=== PATIENT | male | born 1980 ===

== ENCOUNTER 2022-02-18 09:09 | Outpatient (REF) | payer OTHER, SELFPAY ==
[2022-02-18 09:43] LABS: MANUAL DIFF FLAG NO
[2022-02-18 11:27] LABS: Basophils Percent Auto 0.6 % (0-2); Eosinophils Absolute Auto 0.1 X10*3/uL (0.0-0.4); Eosinophils Percent Auto 1.2 % (0-4); Hematocrit 39.5 % (42.0-52.0); Hemoglobin 13.1 g/dl (14.0-18.0); Imm Gran Abs Auto 0.02 X10*3/uL (0.00-0.03); Imm Gran Pct Auto 0.3 % (0.0-0.4); Lymphocytes Absolute Auto 2.1 X10*3/uL (1.2-4.9); Lymphocytes Percent Auto 30.9 % (20-40); Mean Corpuscular HGB Conc 33.2 g/dl (31.0-36.0); Mean Corpuscular Hemoglobin 28.4 pg (27.0-33.0); Mean Corpuscular Volume 85.7 fL (80.0-98.0); Mean Platelet Volume 11.3 fL (9.4-12.4); Monocytes Absolute Auto 0.4 X10*3/uL (0.1-1.2); Monocytes Percent Auto 6.2 % (2-11); Neutrophils Absolute Auto 4.1 x10*3/uL (2.0-8.3); Neutrophils Percent Auto 60.8 % (45-73); Platelet Count 192 X10*3/uL (160-400); Red Blood Count 4.61 X10*6/uL (4.60-5.80); White Blood Count 6.7 X10*3/uL (4.8-10.8)
[2022-02-18 12:46] LABS: Alanine Aminotransferase 12 U/L (0-40); Albumin Level 4.4 g/dL (3.5-5.0); Alkaline Phosphatase 54 U/L (39-117); Anion Gap 13 (12-20); Aspartate Amino Transferase 22 U/L (5-37); Bilirubin Total 0.6 mg/dL (0.0-1.0); Blood Urea Nitrogen 11 mg/dL (9-16); Calcium 9.6 mg/dL (8.4-10.2); Carbon Dioxide 26 mmol/L (22-29); Chloride 106 mmol/L (96-108); Cholesterol 187 mg/dL; Estimated Glomerular Filt Rate > 60; Glucose Fasting 85 mg/dL (60-99); HDL Cholesterol 60 mg/dL; LDL Cholesterol Calculated 119 mg/dl; Potassium 5.2 mmol/L (3.3-5.1); Sodium 140 mmol/L (135-145); Total Protein 6.8 g/dL (6.5-8.0); Triglycerides 44 mg/dL
== END 2022-02-18 09:10 | disposition home or self-care (01) ==
LOC: HO.LAB 09:09
PROVIDERS: PCP Internal Medicine; Visit Provider Internal Medicine
DX: Z13.0 Encounter for screening for diseases of the blood and blood-forming organs and certain disorders involving the immune mechanism (principal); I10 Essential (primary) hypertension; E78.5 Hyperlipidemia, unspecified
CPT/HCPCS: 36415; 80053; 80061; 85025

== ENCOUNTER 2022-08-11 09:54 | Outpatient (REF) | payer OTHER, SELFPAY ==
--- NOTE | ~2022-08-11 | XR_ITS ---
EXAMINATION: XR HIP, LEFT CLINICAL INFORMATION: Pain. COMPARISON: No similar priors. TECHNIQUE: Two views of the left hip. FINDINGS: No acute fractures or subluxation. No significant degenerative changes. No abnormal soft tissue calcifications. No unexpected radiopaque foreign bodies. XR/XR hip LT min 2V IMPRESSION: No acute radiographic abnormalities to explain patient's symptoms.
--- NOTE | ~2022-08-11 | XR_ITS ---
EXAMINATION: XR KNEE, LEFT CLINICAL INFORMATION: Pain. COMPARISON: None available. TECHNIQUE: Two views of the left knee. FINDINGS: No acute fractures or subluxation. No significant degenerative changes. No erosions or chondrocalcinosis. No joint effusion. XR/XR knee LT 2V IMPRESSION: Normal radiographic appearance of the left knee.
== END 2022-08-11 09:55 | disposition home or self-care (01) ==
LOC: HO.XRAY 09:54
PROVIDERS: PCP Internal Medicine; Visit Provider Internal Medicine
DX: M25.562 Pain in left knee (principal); M25.552 Pain in left hip
CPT/HCPCS: 73502; 73560

== ENCOUNTER 2023-10-29 11:05 | Outpatient (AMB) | payer OTHER, SELFPAY ==
[2023-10-29 11:12] VITALS: BP 110/70; PULSE 57; O2SAT 98; BMI 25.0
--- NOTE | 2023-10-29 11:12 | MHC.PC.OV ---
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: Not Required per policy Accompanied by: Self / Same As Patient Allergies No Known Allergies Allergy (Verified 10/29/23 11:13) Tobacco use date assessed: 10/29/23 Dental Screening Dental Screen Date: 10/29/23 Did you have a dental visit in the last 12 months?: Yes Did you have a dental problem in the last 6 months where you did not have access to dental care?: No Was dental information given to patient?: Patient has dentist HPI chest pain HPI Details sharp palpitations and chest pain intermittently chronic but worse recently [facility] Surgical History No pertinent past surgical history Family History Father Heart problem Mother Asthma Arthritis Social History (Updated 10/24/21 @ 13:48 by Ritesh Hair [facility]) Housing: House (town house) Alcohol intake: never Patient Tobacco Use Status: Current everyday Tobacco user Tobacco use type: Cigarette Cigarettes Per Day: 5 e-Cigarette/Vaping Use: Former Use Second Hand Smoke Exposure: Yes service: No Current occupational status: employed 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 1. Little interest or pleasure in doing things: not at all 2. Feeling down, depressed, or hopeless: not at all 3. Trouble falling or staying asleep, or sleeping too much: not at all 4. Feeling tired or having little energy: not at all 5. Poor appetite or overeating: not at all 6. Feeling bad about yourself - or that you are a failure or have let yourself or your family down: not at all 7. Trouble concentrating on things, such as reading the newspaper or watching television: not at all 8. Moving or speaking so slowly that other people could have noticed. Or the opposite - being so fidgety or restless that you have been moving around a lot more than usual: not at all 9. Thoughts that you would be better off or of hurting yourself in some way: not at all Total score: 0 Depression Screening Interpretation: Negative Depression Screening Done: Yes 76904 - PHQ-9 Billing: Yes Source: Developed by Drs. Trell Hua, Chel Delgado, Nabeel Song and colleagues, with an educational nic from [employer]. Thrive Questionnaire Date Thrive assessed: 10/29/23 I am a: Patient What is your living situation today?: I have a steady place to live Within the past 12 months, did the food you bought not last and you didn't have the money to get more?: Never true Within the past 12 months, did you worry whether your food would run out before you got money to buy more?: Never true Do you have trouble paying for medicines?: No Do you have trouble getting transportation to medical appointments?: No Do you have trouble paying your heating and electricity bill?: No Do you have trouble taking care of your child, family member or friend?: No Do you have trouble with day-to-day activities such as bathing, preparing meals, shopping, managing finances, etc.?: No Are you currently unemployed and looking for a job?: No Are you interested in more education?: No Please select the resources that you would like help with: None THRIVE Score: 0 AUDIT C Alcohol Use Questionnaire (AUDIT-C) 1. How often do you have a drink containing alcohol?: Never 2. How many drinks containing alcohol do you have on a typical day when you are drinking?: 1 or 2 Total Score: 0 Score Reviewed/Action Taken: Yes MONI-7 AMB Questionnaire MONI-7 Date MONI - 7 assessed: 10/29/23 Feeling nervous, anxious, or on edge: 0 = Not at all Not being able to stop or control worryin = Not at all Worrying too much about different things: 0 = Not at all Trouble relaxin = Not at all Being so restless that it is hard to sit still: 0 = Not at all Becoming easily annoyed or irritable: 0 = Not at all Feeling afraid as if something awful might happen: 0 = Not at all Total MONI-7 score (0-4 normal; 5-9 mild; 10-14 moderate; 15-21 severe): 0 Source: Developed by Drs. Trell Hua, Chel Delgado, Nabeel Song and colleagues, with an educational nic from [employer]. Review of Systems Const Denies chills, Denies headache(s) and Denies weight loss ENT Denies headache(s) Card Reports chest pain, Denies syncope and Denies dyspnea Resp Denies chest congestion, Denies cough and Denies dyspnea GI Denies abdominal pain, Denies change in stool character, Denies nausea and Denies vomiting Musc Denies deformity and Denies joint swelling Neuro Denies syncope and Denies headache(s) Physical exam (Primary Care) Vital Signs: Last Vital Signs Pulse 57 10/29/23 11:12 BP 110/70 10/29/23 11:12 Pulse Ox 98 10/29/23 11:12 Oxygen Delivery Method Room Air 10/29/23 11:12 BMI result Body Mass Index 25.0 Tobacco/Smoking Status: Tobacco use Status Tobacco use date assessed 10/29/23 10/29/23 11:14 Patient Tobacco Use Status Current everyday Tobacco 10/29/23 11:14 Tobacco use type Cigarette 10/29/23 11:14 e-Cigarette/Vaping Use Former Use 10/29/23 11:14 PHQ-9: PHQ-9 Score PHQ-9: Total score 0 10/29/23 11:14 Depression Screening Interpretation: Negative Thrive Assessment: Date of Thrive Assessment Date Thrive assessed 10/29/23 10/29/23 11:14 Const General: cooperative, comfortable, no acute distress and alert Neck Neck: Yes no lymphadenopathy Thyroid: Thyroid normal Resp Effort & Inspection: normal respiratory effort Auscultation: clear to auscultation bilaterally Percussion: percussion normal Cardio Jugular venous distension: no JVD Palpation: normal PMI Rate: regular rate Rhythm: regular rhythm Heart sounds: S1 normal heart sound present and S2 normal heart sound present GI Inspection: Yes normal to inspection Palpation (GI): No hepatosplenomegaly present Skin General skin exam: no rashes or lesions noted Extrem General: Yes no clubbing, cyanosis or edema Assessment and Plan Assessment & Plan (1) Chest pain: Code(s): R07.9 - Chest pain, unspecified Plan: labs ad xr Orders: Orders Thyroid Stimulating Hormone Today Z13.29 - Encounter for screening for other suspected endocrine disorder ECG 12 lead EKG Today R07.9 - Chest pain, unspecified Comprehensive [place]. Panel Fast Today Z13.9 - Encounter for screening, unspecified Complete Blood Count Auto Diff Today Z13.0 - Encounter for screening for diseases of the blood and blood-forming organs and certain disorders involving the immune mechanism Lipid Panel Today Z13.220 - Encounter for screening for lipoid disorders Coding Level of Care Code Est Pt Level 3 (22943) Diagnoses Chest pain R07.9
== END 2023-10-29 12:40 | disposition home or self-care (01) ==
PROVIDERS: PCP Internal Medicine; Visit Provider Internal Medicine
DX: R07.9 Chest pain, unspecified (principal)
CPT/HCPCS: 99213

== ENCOUNTER 2024-05-20 13:33 | Outpatient (AMB) | payer OTHER, SELFPAY ==
[2024-05-20 13:58] VITALS: BP 110/66; PULSE 66; TEMP 36.2; O2SAT 97; BMI 24.1
--- NOTE | 2024-05-20 13:58 | A.OFFPC_ITS ---
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 Accompanied by: Self / Same As Patient Allergies No Known Allergies Allergy (Verified 05/20/24 14:31) Medication List - Last Reconciled 05/20/24 by SOUMYA Blood buprenorphine-naloxone 4-1 mg (Suboxone) 1 film sublingual DAILY Tobacco use date assessed: 05/20/24 Dental Screening Dental Screen Date: 05/20/24 Did you have a dental visit in the last 12 months?: No Did you have a dental problem in the last 6 months where you did not have access to dental care?: No Was dental information given to patient?: Patient has dentist HPI PHYSICAL HPI Details Dentist: reports needing a dentist eye: up to date Eye: Snellen: Right: Left: Corrected vision: glasses STI screening: Na Colonoscopy: due-we will order PHQ-9: Flu:decline COVID:decline Tdap:don't remember Diet: regular Exercise: exercises at home doing push up The patient is presenting for an annual physical The patient of Dr. Cabral and was last seen on 10/29/2023 Significant past medical history for substance abuse, constipation, and rectal bleeding Patient reports that he has a lot of concerns today Discussed with patient that I will start the process on all his concerns but might not be able to rectify them on this visit Right knee: Reports that this has been going on for years he feels like his right knee has given out He denies pain, denies swelling, this nice discoloration, denies injuries Reports that it feels weaker at times and feels like it is given out will order a right knee x-ray to further evaluate lower back pain: Reports this has been going on for years as well He feels like a sharp pain or feel like I am being pinched in the back region Reports occasional tingling in his right calf Denies being seen by PT-but not sure if his workup was would allow We will order lumbar x-ray to further evaluate Abdominal pain: RUQ pain, + travis sign during assessment abdominal ultrasound ordered -the patient denied abdominal pain prior to assessment Amnesia: Reports episodes of amnesia that has been going on for 2-3 years Reports a sometime he forgets what he did few hours prior Denies other neurological s/sx -we will refer to neurology for workup *RUQ-+travis signs. 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 1. Little interest or pleasure in doing things: not at all 2. Feeling down, depressed, or hopeless: not at all 3. Trouble falling or staying asleep, or sleeping too much: not at all 4. Feeling tired or having little energy: not at all 5. Poor appetite or overeating: not at all 6. Feeling bad about yourself - or that you are a failure or have let yourself or your family down: not at all 7. Trouble concentrating on things, such as reading the newspaper or watching television: not at all 8. Moving or speaking so slowly that other people could have noticed. Or the opposite - being so fidgety or restless that you have been moving around a lot more than usual: not at all 9. Thoughts that you would be better off or of hurting yourself in some way: not at all Total score: 0 Depression Screening Interpretation: Negative Depression Screening Done: Yes 92840 - PHQ-9 Billing: Yes Source: Developed by Drs. Trell Hua, Chel Delgado, Nabeel Song and colleagues, with an educational nic from [employer]. Thrive Questionnaire Date Thrive assessed: 05/20/24 I am a: Parent/Caregiver What is your living situation today?: I have a place to live, but I am worried about losing it in the future Within the past 12 months, did the food you bought not last and you didn't have the money to get more?: Sometimes True Within the past 12 months, did you worry whether your food would run out before you got money to buy more?: Sometimes True Do you have trouble paying for medicines?: I choose not to answer this question Do you have trouble getting transportation to medical appointments?: No Do you have trouble paying your heating and electricity bill?: I choose not to answer this question Do you have trouble taking care of your child, family member or friend?: No Do you have trouble with day-to-day activities such as bathing, preparing meals, shopping, managing finances, etc.?: No Are you currently unemployed and looking for a job?: No Are you interested in more education?: No Please select the resources that you would like help with: Housing/Usp, Food, Utilities and Childcare Currently or been in a relationship where the following occur: I choose not to answer THRIVE Score: 3 AUDIT C Alcohol Use Questionnaire (AUDIT-C) 1. How often do you have a drink containing alcohol?: 2-4 times a month 2. How many drinks containing alcohol do you have on a typical day when you are drinking?: 1 or 2 3. How often do you have six or more drinks on one occasion?: Never Total Score: 2 Score Reviewed/Action Taken: Yes MONI-7 AMB Questionnaire MONI-7 Date MONI - 7 assessed: 05/20/24 Feeling nervous, anxious, or on edge: 0 = Not at all Not being able to stop or control worryin = Several days Worrying too much about different things: 1 = Several days Trouble relaxin = Several days Being so restless that it is hard to sit still: 1 = Several days Becoming easily annoyed or irritable: 1 = Several days Feeling afraid as if something awful might happen: 1 = Several days Total MONI-7 score (0-4 normal; 5-9 mild; 10-14 moderate; 15-21 severe): 6 Source: Developed by Drs. Trell Hua, Chel Delgado, Nabeel Song and colleagues, with an educational nic from [employer]. MONI-7 Assessment Billing MONI-7 Assessment Tool: MONI-7 Assessment 26181 Review of Systems Const Details: Denies chills, Denies fatigue, Denies fever(s), Denies headache(s) and Denies weakness HEENT Denies change in vision, Denies dizziness, Denies headache(s), Denies hearing loss, Denies nasal congestion, Denies sinus pain, Denies sinus pressure and Denies sore throat Card Denies chest pain, Denies lightheadedness, Denies dyspnea and reports hx of palpitations Resp Denies cough, Denies dyspnea and Denies wheezing GI Denies abdominal pain, Denies melena, Denies hematochezia, Denies change in bowel habits, Denies dyspepsia and Denies nausea Denies hematuria and Denies dysuria Musc other: reports lower back pain and right knee pain Denies abnormal gait, Denies myalgias, Denies arthralgias, Denies numbness and Denies tingling Skin/Breast Denies rash, Denies unusual bruising and Denies wounds Neuro Denies abnormal gait, Denies dizziness, Denies headache(s), Denies memory loss, Denies numbness, Denies Sensory deficit (Neuro), Denies tingling and Denies weakness Psych reports hx of anxiety and depression and Denies memory loss Endo Denies cold intolerance, Denies fatigue, Denies heat intolerance, Denies polydipsia and Denies polyuria Lei/Lymph Denies easy bleeding and Denies easy bruising Aller/Immun Denies wheezing Physical exam (Primary Care) Vital Signs: Last Vital Signs Temp 97.1 F 05/20/24 13:58 Pulse 66 05/20/24 13:58 BP 110/66 05/20/24 13:58 Pulse Ox 97 05/20/24 13:58 Oxygen Delivery Method Room Air 05/20/24 13:58 BMI result Body Mass Index 24.1 Tobacco/Smoking Status: Tobacco use Status Tobacco use date assessed 05/20/24 05/20/24 14:07 Patient Tobacco Use Status Former Tobacco user 05/20/24 14:35 Tobacco use type Cigarette 05/20/24 14:07 e-Cigarette/Vaping Use Former Use 05/20/24 14:07 PHQ-9: PHQ-9 Score PHQ-9: Total score 0 05/21/24 15:02 Depression Screening Interpretation: Negative Thrive Assessment: Date of Thrive Assessment Date Thrive assessed 05/20/24 05/20/24 14:07 Currently or been in a relationship where the following occur: I choose not to answer Const Other: General: no acute distress, well developed, alert and awake Nutritional Appearance: well nourished Orientation/consciousness: patient oriented x3 HENMT Head: Yes normocephalic and Yes atraumatic Ears: hearing grossly normal bilaterally and TM's normal bilaterally General nose exam: Normal external nose present and Normal nares present Mouth: Normal oral and palatal mucosa present and moist mucous membranes Teeth and gingiva: dentition normal Throat: Yes oropharynx normal Eyes Pupils: Equal, round and reactive pupils present and Pupil accommodation reflex normal EOM: EOMs intact bilaterally Neck Neck: Yes normal visual inspection, Yes no lymphadenopathy and Yes trachea midline Thyroid: Thyroid normal Carotids: no bruits Lymphatic: no lymphadenopathy noted Chest Chest palpation & inspection: normal inspection of the chest Resp Effort & Inspection: normal respiratory effort Auscultation: clear to auscultation bilaterally Cardio Rate: regular rate Rhythm: regular rhythm Heart sounds: S1 normal heart sound present, S2 normal heart sound present, no gallops, no murmurs and no rubs Bruits: no abdominal aortic bruits and no carotid bruits GI Palpation (GI): No Abdominal aortic bruit present, abdomen flat and soft to palpation, No Rebound tenderness present other: +travis's test Auscultation: normal bowel sounds General: Yes no CVA tenderness Back/Spine/Pelvis Back: no CVA tenderness Cervical Spine: cervical ROM normal and No Cervical spine tenderness Thoracic/Lumbar Spine: thoraco-lumbar ROM normal, No pain with thoraco-lumbar ROM, No thoracic spinal tenderness and +lower lumbar spinal tenderness Skin General: warm and dry. Normal skin color. Normal skin turgor Lesions: no lesions Rashes: no rashes Trauma: no lacerations or abrasions Wounds: no wounds Nails: normal Neuro General: patient oriented x3, gait normal and CN's II-XI intact bilaterally Cranial nerves: Yes Equal, round and reactive pupils present Cognition (Neuro): normal cognition Gait exam (Neuro): Normal gait present Motor exam (neuro): 5/5 motor strength present throughout Sensory Exam: No Sensory deficit (Neuro) Deep tendon reflexes (DTR's): Right patellar reflex intensity grade: 2+ and Left patellar reflex intensity grade: 2+ Extrem General: Yes normal to inspection, No edema and No calf tenderness Psych Appearance: grossly normal Affect: normal affect Attitude: cooperative Thought process: Normal thought process present Coding Level of Care Code Est Pt Prev Care 40-64y(58217) Diagnoses Annual physical exam Z00.00 Right upper quadrant abdominal pain R10.11 Abdominal location: right upper quadrant Rectal bleeding K62.5 Midline low back pain with right-sided sciatica, unspecified chronicity M54.41 Back pain laterality: midline Chronicity: unspecified Sciatica laterality: sciatica of right side Sciatica presence: with sciatica Right knee gives way M25.361 Substance abuse in remission F19.11 Screening for colorectal cancer Z12.11; Z12.12 Additional Codes MONI-7 Assessment Billing - MONI-7 Assessment Tool: MONI-7 Assessment 07205 ([id number]) PHQ-9 - 58919 - PHQ-9 Billing: Yes ([id number]) Time Spent (min) 42 Assessment & Plan Assessment & Plan (1) Annual physical exam: Code(s): Z00.00 - Encounter for general adult medical examination without abnormal findings Category: Medical Plan: The patient is update on his eye exam, he needs to see the dentist-he will make an appt declines covid and flu vaccine. He due for colorectal screening a GI referral was placed Labs ordered and the patient was encouraged to get them done noel (2) Abdominal pain: Code(s): R10.9 - Unspecified abdominal pain Category: Medical Qualifiers: Abdominal location: right upper quadrant Qualified Code(s): R10.11 - Right upper quadrant pain Plan: +travis test during exam abdominal US ordered (3) Rectal bleeding: Comment: 40 min reviewing chart evaluating patient and documenting Code(s): K62.5 - Hemorrhage of anus and rectum Category: Medical Plan: The patient has a hx of hemrrhoids, reports that this has been stable (4) Lower back pain: Code(s): M54.50 - Low back pain, unspecified Category: Medical Qualifiers: Back pain laterality: midline Chronicity: unspecified Sciatica laterality: sciatica of right side Sciatica presence: with sciatica Qualified Code(s): M54.41 - Lumbago with sciatica, right side Plan: reports chronic lower back pain that goes down into right calf region sometimes XR of the lumbar spine ordered (5) Right knee gives way: Code(s): M25.361 - Other instability, right knee Category: Medical Plan: right knee xray ordered Will hold on PT for now, the patient not sure he could commit with his work schedule (6) Substance abuse in remission: Code(s): F19.11 - Other psychoactive substance abuse, in remission Category: Medical Plan: reports that this has been stable since he became a dad, he changed his life around He is currently on Suboxone 4-1 mg 1 film QD (7) Screening for colorectal cancer: Code(s): Z12.11 - Encounter for screening for malignant neoplasm of colon; Z12.12 - Encounter for screening for malignant neoplasm of rectum Category: Medical Plan: The patient is due for colorectal screening-GI refferal placed. Plan The patient to f/u in 2 weeks to review his labs and continue addressing other concerns he had Orders: Orders Comprehensive [place]. Panel Fast 05/20/24 F19.11 - Other psychoactive substance abuse, in remission, K62.5 - Hemorrhage of anus and rectum, Z00.00 - Encounter for general adult medical examination without abnormal findings UA CC w/rflx Micro + Cult 05/20/24 F19.11 - Other psychoactive substance abuse, in remission, K62.5 - Hemorrhage of anus and rectum, Z00.00 - Encounter for general adult medical examination without abnormal findings Lipid Panel 05/20/24 F19.11 - Other psychoactive substance abuse, in remission, K62.5 - Hemorrhage of anus and rectum, Z00.00 - Encounter for general adult medical examination without abnormal findings US abdomen complete 05/20/24 R10.9 - Unspecified abdominal pain XR lumbar spine 2-3V 05/20/24 M54.50 - Low back pain, unspecified XR knee RT 3V 05/20/24 M25.561 - Pain in right knee Complete Blood Count Auto Diff 05/20/24 F19.11 - Other psychoactive substance abuse, in remission, K62.5 - Hemorrhage of anus and rectum, Z00.00 - Encounter for general adult medical examination without abnormal findings TSH reflex Free T4 05/20/24 F19.11 - Other psychoactive substance abuse, in remission, K62.5 - Hemorrhage of anus and rectum, Z00.00 - Encounter for general adult medical examination without abnormal findings Vitamin D 25-OH Total 05/20/24 F19.11 - Other psychoactive substance abuse, in remission, K62.5 - Hemorrhage of anus and rectum, Z00.00 - Encounter for general adult medical examination without abnormal findings Glucose Fasting 05/20/24 F19.11 - Other psychoactive substance abuse, in remission, K62.5 - Hemorrhage of anus and rectum, Z00.00 - Encounter for general adult medical examination without abnormal findings PSA,Total (Free>4and<10) 05/20/24 F19.11 - Other psychoactive substance abuse, in remission, K62.5 - Hemorrhage of anus and rectum, Z00.00 - Encounter for general adult medical examination without abnormal findings Referrals Gastroenterology Referral Z12.11 - Encounter for screening for malignant neoplasm of colon, Z12.12 - Encounter for screening for malignant neoplasm of rectum
== END 2024-05-20 14:44 | disposition home or self-care (01) ==
DX: Z00.00 Encounter for general adult medical examination without abnormal findings (principal); R10.11 Right upper quadrant pain; K62.5 Hemorrhage of anus and rectum; M54.41 Lumbago with sciatica, right side; M25.361 Other instability, right knee; F19.11 Other psychoactive substance abuse, in remission; Z12.11 Encounter for screening for malignant neoplasm of colon; Z12.12 Encounter for screening for malignant neoplasm of rectum

== ENCOUNTER → 2024-05-20 13:33 | Outpatient (BNVA) | payer OTHER, SELFPAY | DX: Z00.00 Encounter for general adult medical examination without abnormal findings (principal); R10.11 Right upper quadrant pain; K62.5 Hemorrhage of anus and rectum; M54.41 Lumbago with sciatica, right side; M25.361 Other instability, right knee; F19.11 Other psychoactive substance abuse, in remission | CPT/HCPCS: 96127; 99396 ==

== ENCOUNTER 2024-05-24 09:32 | Outpatient (REF) | payer OTHER, SELFPAY ==
[2024-05-24 09:44] LABS: MANUAL DIFF FLAG NO
[2024-05-24 10:09] LABS: Basophils Percent Auto 0.6 % (0-2); Eosinophils Percent Auto 0.8 % (0-4); Hematocrit 40.5 % (42.0-52.0); Hemoglobin 13.7 g/dl (14.0-18.0); Imm Gran Abs Auto 0.01 X10*3/uL (0.00-0.03); Imm Gran Pct Auto 0.2 % (0.0-0.4); Lymphocytes Absolute Auto 1.7 X10*3/uL (1.2-4.9); Lymphocytes Percent Auto 32.8 % (20-40); Mean Corpuscular HGB Conc 33.8 g/dl (31.0-36.0); Mean Corpuscular Hemoglobin 29.1 pg (27.0-33.0); Mean Platelet Volume 10.1 fL (9.4-12.4); Monocytes Absolute Auto 0.5 X10*3/uL (0.1-1.2); Monocytes Percent Auto 10.4 % (2-11); Neutrophils Absolute Auto 2.9 x10*3/uL (2.0-8.3); Neutrophils Percent Auto 55.2 % (45-73); Platelet Count 208 X10*3/uL (160-400); Red Blood Count 4.71 X10*6/uL (4.60-5.80); Red Cell Distribution Width 13.9 % (11.0-16.0); White Blood Count 5.2 X10*3/uL (4.8-10.8)
[2024-05-24 10:52] LABS: Appearance Urine Clear; Color Urine Yellow; Glucose Urine UA Negative (Negative); Leukocyte Esterase Urine Negative (Negative); Nitrite Urine Negative (Negative); Urine Blood Negative (Negative); Urine Ketones Negative (Negative); Urine Protein Negative (Neg-Trace)
[2024-05-24 11:59] LABS: Alanine Aminotransferase 31 U/L (0-40); Albumin Level 4.4 g/dL (3.5-5.0); Alkaline Phosphatase 56 U/L (39-117); Anion Gap 9 (12-20); Aspartate Amino Transferase 34 U/L (5-37); Bilirubin Total 0.5 mg/dL (0.0-1.0); Blood Urea Nitrogen 12 mg/dL (9-16); Calcium 9.4 mg/dL (8.4-10.2); Carbon Dioxide 29 mmol/L (22-29); Chloride 107 mmol/L (96-108); Cholesterol 184 mg/dL (<200); Estimated Glomerular Filt Rate > 60; Glucose Fasting 84 mg/dL (60-99); HDL Cholesterol 57 mg/dL (>40); LDL Cholesterol Calculated 116 mg/dL (<100); Potassium 4.5 mmol/L (3.3-5.1); Sodium 140 mmol/L (135-145); Total Protein 7.3 g/dL (6.5-8.0); Triglycerides 58 mg/dL (<150)
[2024-05-24 12:08] LABS: TSH reflex Free T4 0.58 uIU/mL (0.32-4.0); Vitamin D 25-OH Total 42.2 ng/mL (>30)
[2024-05-24 12:09] LABS: PSA,Total (Free>4and<10) 0.26 ng/mL (0.00-4.00)
== END 2024-05-24 09:33 | disposition home or self-care (01) ==
LOC: HO.LAB 09:32
DX: Z00.00 Encounter for general adult medical examination without abnormal findings (principal); F19.11 Other psychoactive substance abuse, in remission; K62.5 Hemorrhage of anus and rectum
CPT/HCPCS: 36415; 80053; 80061; 81003; 82306; 84153; 84443; 85025

== ENCOUNTER 2024-06-03 13:49 | Outpatient (AMB) | payer OTHER, SELFPAY ==
[2024-06-03 14:05] VITALS: BP 116/68; PULSE 82; O2SAT 96; BMI 23.6
--- NOTE | 2024-06-03 14:05 | MHC.PC.OV ---
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 Accompanied by: Self / Same As Patient Allergies No Known Allergies Allergy (Verified 06/04/24 20:54) Medication List - Last Reconciled 06/04/24 by SOUMYA Blood buprenorphine-naloxone 4-1 mg (Suboxone) 1 film sublingual DAILY docusate sodium (Colace) 100 mg PO BID Tobacco use date assessed: 06/03/24 Dental Screening Dental Screen Date: 06/03/24 Did you have a dental visit in the last 12 months?: No Did you have a dental problem in the last 6 months where you did not have access to dental care?: No Was dental information given to patient?: No HPI lab review/lower back/abdominal pain HPI Details The patient is 44-year-old male with significant past medical history of substance abuse in remission, rectal bleeding, in constipation The patient is presenting for follow up appointment for abdominal pain and lab review On the patient previous visit an abdominal ultrasound was ordered due to right upper quadrant pain Patient reports that he received the call about scheduling the ultrasound but he has to figure out some things at work first He can not just take time off when he wants to and he has to make sure he has the PTO hours to cover it first In addition he has to coordinate with his kids schedule and he let them know that he will call them back when he is sure about when he could have this done The patient also had a right knee and lumbar x-ray ordered. The patient reports he would try to get all these tests done on the same day Patient had blood work done, and is interested to know the results He denies shortness of breath, chest pain, heart palpitation, dizziness He reports on and off abdominal pain and constipation He reports that his right knee and lower back pain continue [facility] Medical History (Updated 06/04/24 @ 21:40 by SOUMYA Blood) Encounter for colorectal cancer screening using Cologuard test Surgical History No pertinent past surgical history Family History Father Heart problem Mother Asthma Arthritis Social History Housing: House (town house) Alcohol intake: never Patient Tobacco Use Status: Former Tobacco user Tobacco use type: Cigarette Cigarettes Per Day: 5 e-Cigarette/Vaping Use: Former Use Second Hand Smoke Exposure: Yes service: No Current occupational status: employed 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 1. Little interest or pleasure in doing things: not at all 2. Feeling down, depressed, or hopeless: not at all 3. Trouble falling or staying asleep, or sleeping too much: not at all 4. Feeling tired or having little energy: not at all 5. Poor appetite or overeating: not at all 6. Feeling bad about yourself - or that you are a failure or have let yourself or your family down: not at all 7. Trouble concentrating on things, such as reading the newspaper or watching television: not at all 8. Moving or speaking so slowly that other people could have noticed. Or the opposite - being so fidgety or restless that you have been moving around a lot more than usual: not at all 9. Thoughts that you would be better off or of hurting yourself in some way: not at all Total score: 0 Depression Screening Interpretation: Negative Depression Screening Done: Yes 50013 - PHQ-9 Billing: Yes Source: Developed by Drs. Trell Hua, Chel Delgado, Nabeel Song and colleagues, with an educational nic from [employer]. Thrive Questionnaire Date Thrive assessed: 06/03/24 I am a: Parent/Caregiver What is your living situation today?: I have a place to live, but I am worried about losing it in the future Within the past 12 months, did the food you bought not last and you didn't have the money to get more?: Sometimes True Within the past 12 months, did you worry whether your food would run out before you got money to buy more?: Sometimes True Do you have trouble paying for medicines?: I choose not to answer this question Do you have trouble getting transportation to medical appointments?: No Do you have trouble paying your heating and electricity bill?: I choose not to answer this question Do you have trouble taking care of your child, family member or friend?: No Do you have trouble with day-to-day activities such as bathing, preparing meals, shopping, managing finances, etc.?: No Are you currently unemployed and looking for a job?: No Are you interested in more education?: No Please select the resources that you would like help with: None Currently or been in a relationship where the following occur: I choose not to answer THRIVE Score: 3 AUDIT C Alcohol Use Questionnaire (AUDIT-C) 1. How often do you have a drink containing alcohol?: 2-4 times a month 2. How many drinks containing alcohol do you have on a typical day when you are drinking?: 1 or 2 3. How often do you have six or more drinks on one occasion?: Never Total Score: 2 Score Reviewed/Action Taken: Yes MONI-7 AMB Questionnaire MONI-7 Date MONI - 7 assessed: 06/03/24 Feeling nervous, anxious, or on edge: 0 = Not at all Not being able to stop or control worryin = Several days Worrying too much about different things: 1 = Several days Trouble relaxin = Several days Being so restless that it is hard to sit still: 1 = Several days Becoming easily annoyed or irritable: 1 = Several days Feeling afraid as if something awful might happen: 1 = Several days Total MONI-7 score (0-4 normal; 5-9 mild; 10-14 moderate; 15-21 severe): 6 Source: Developed by Drs. Trell Hua, Chel Delgado, Nabeel Song and colleagues, with an educational nic from [employer]. MONI-7 Assessment Billing MONI-7 Assessment Tool: MONI-7 Assessment 82538 Review of Systems Const Details: Denies chills, , Denies fever(s)+tiredness (the patient also reported only sleeping 6 hours a night), Denies headache(s) and Denies weakness HEENT Denies change in vision, Denies dizziness, Denies headache(s), Denies hearing loss, Denies nasal congestion, Denies sinus pain, Denies sinus pressure and Denies sore throat Card Denies chest pain, Denies lightheadedness, Denies dyspnea and Denies other (palpitations) Resp Denies cough, Denies dyspnea and Denies wheezing GI + abdominal pain on and off, Denies melena, Denies hematochezia, Denies change in bowel habits, Denies dyspepsia and Denies nausea +constipation intermittently Denies hematuria and Denies dysuria Musc Denies abnormal gait, Denies myalgias, +arthralgias (right knee and lower back), Denies numbness and Denies tingling Skin/Breast Denies rash, Denies unusual bruising and Denies wounds Neuro Denies abnormal gait, Denies dizziness, Denies headache(s), Denies memory loss, Denies numbness, Denies Sensory deficit (Neuro), Denies tingling and Denies weakness Psych Denies anxiety, Denies depression and Denies memory loss Endo Denies cold intolerance, Denies fatigue, Denies heat intolerance, Denies polydipsia and Denies polyuria Lei/Lymph Denies easy bleeding and Denies easy bruising Aller/Immun Denies wheezing Physical exam (Primary Care) Vital Signs: Last Vital Signs Pulse 82 06/03/24 14:05 BP 116/68 06/03/24 14:05 Pulse Ox 96 06/03/24 14:05 Oxygen Delivery Method Room Air 06/03/24 14:05 BMI result Body Mass Index 23.6 Tobacco/Smoking Status: Tobacco use Status Tobacco use date assessed 06/03/24 06/03/24 14:10 Patient Tobacco Use Status Former Tobacco user 06/03/24 14:10 Tobacco use type Cigarette 06/03/24 14:10 e-Cigarette/Vaping Use Former Use 06/03/24 14:10 PHQ-9: PHQ-9 Score PHQ-9: Total score 0 06/03/24 14:15 Depression Screening Interpretation: Negative Thrive Assessment: Date of Thrive Assessment Date Thrive assessed 06/03/24 06/03/24 14:10 Currently or been in a relationship where the following occur: I choose not to answer Const Other: General: no acute distress, well developed, alert and awake Nutritional Appearance: well nourished Orientation/consciousness: patient oriented x3 HENMT Head: Yes normocephalic and Yes atraumatic Ears: hearing grossly normal bilaterally and TM's normal bilaterally General nose exam: Normal external nose present and Normal nares present Mouth: Normal oral and palatal mucosa present and moist mucous membranes Eyes Pupils: Equal, round and reactive pupils present and Pupil accommodation reflex normal EOM: EOMs intact bilaterally Neck Neck: Yes normal visual inspection, Yes no lymphadenopathy and Yes trachea midline Thyroid: Thyroid normal Carotids: no bruits Lymphatic: no lymphadenopathy noted Chest Chest palpation & inspection: normal inspection of the chest Resp Effort & Inspection: normal respiratory effort Auscultation: clear to auscultation bilaterally Cardio Rate: regular rate Rhythm: regular rhythm Heart sounds: S1 normal heart sound present, S2 normal heart sound present, no gallops, no murmurs and no rubs GI Palpation (GI): +RUQ pain with palpation, abdomen flat and soft Auscultation: normal bowel sounds General: Yes no CVA tenderness Back/Spine/Pelvis Back: no CVA tenderness Cervical Spine: cervical ROM normal and No Cervical spine tenderness Thoracic/Lumbar Spine: lumbar tenderness Skin General: warm and dry. Normal skin color. Normal skin turgor Lesions: no lesions Rashes: no rashes Trauma: no lacerations or abrasions Wounds: no wounds Nails: normal Neuro General: patient oriented x3, gait normal Cranial nerves: Yes Equal, round and reactive pupils present Cognition (Neuro): normal cognition Gait exam (Neuro): Normal gait present Extrem General: Yes normal to inspection, No edema and No calf tenderness Psych Appearance: grossly normal Affect: normal affect Attitude: cooperative Thought process: Normal thought process present Results Reviewed Results Reviewed: Laboratory Tests 05/24/24 05/24/24 09:38 09:42 WBC 5.2 RBC 4.71 Hgb 13.7 L Hct 40.5 L MCV 86.0 MCH 29.1 Sodium 140 Potassium 4.5 Chloride 107 Carbon Dioxide 29 BUN 12 Creatinine 0.75 Estimated GFR > 60 Fasting Glucose 84 Calcium 9.4 AST 34 ALT 31 Alkaline Phosphatase 56 Triglycerides 58 Cholesterol 184 LDL Cholesterol, Calc 116 H HDL Cholesterol 57 Total PSA 0.26 25-OH Vitamin D Total 42.2 TSH 0.58 Urine Color Yellow Urine Appearance Clear Urine pH 8.0 Ur Specific [place] 1.020 Urine Protein Negative Urine Glucose (UA) Negative Urine Ketones Negative Urine Blood Negative Urine Nitrite Negative Ur Leukocyte Esterase Negative Coding Level of Care Code Est Pt Level 4 (21184) Diagnoses Right upper quadrant abdominal pain R10.11 Abdominal location: right upper quadrant Rectal bleeding K62.5 Midline low back pain with right-sided sciatica, unspecified chronicity M54.41 Chronicity: unspecified Back pain laterality: midline Sciatica presence: with sciatica Sciatica laterality: sciatica of right side Right knee gives way M25.361 Substance abuse in remission F19.11 Chronic idiopathic constipation K59.04 Constipation type: chronic idiopathic constipation Anemia, unspecified type D64.9 Anemia type: unspecified type Additional Codes MONI-7 Assessment Billing - MONI-7 Assessment Tool: MONI-7 Assessment 28584 ([id number]) PHQ-9 - 80688 - PHQ-9 Billing: Yes ([id number]) Assessment & Plan Assessment & Plan (1) Abdominal pain: Code(s): R10.9 - Unspecified abdominal pain Category: Medical Qualifiers: Abdominal location: right upper quadrant Qualified Code(s): R10.11 - Right upper quadrant pain Plan: +travis test during exam abdominal US ordered The patient reports that he received a call for him to schedule the US. Reports that he is trying to take time off from work to get this done (2) Rectal bleeding: Comment: 40 min reviewing chart evaluating patient and documenting Code(s): K62.5 - Hemorrhage of anus and rectum Category: Medical Plan: The patient has a hx of hemrrhoids, reports that this has been stable (3) Lower back pain: Code(s): M54.50 - Low back pain, unspecified Category: Medical Qualifiers: Chronicity: unspecified Back pain laterality: midline Sciatica presence: with sciatica Sciatica laterality: sciatica of right side Qualified Code(s): M54.41 - Lumbago with sciatica, right side Plan: reports chronic lower back pain that goes down into right calf region sometimes XR of the lumbar spine ordered on previous visit The patient is plan of getting this test done along with all his other tests the same day. He is trying to get time off from work to get this done (4) Right knee gives way: Code(s): M25.361 - Other instability, right knee Category: Medical Plan: right knee xray ordered on previous visit, the patient is making plans to get this done Will hold on PT for now, the patient not sure he could commit with his work schedule (5) Substance abuse in remission: Code(s): F19.11 - Other psychoactive substance abuse, in remission Category: Medical Plan: reports that this has been stable since he became a dad, he changed his life around He is currently on Suboxone 4-1 mg 1 film QD (6) Constipation: Code(s): K59.00 - Constipation, unspecified Category: Medical Qualifiers: Constipation type: chronic idiopathic constipation Qualified Code(s): K59.04 - Chronic idiopathic constipation Plan: colace 100 bid ordered. Discussed with the patient to increased fiber in the diet and fluids intake (7) Anemia: Code(s): D64.9 - Anemia, unspecified Category: Medical Qualifiers: Anemia type: unspecified type Qualified Code(s): D64.9 - Anemia, unspecified Plan: H&H 13.71/40.5, the results are nonspecific, iron studies and folate/b12 ordered with the patient next labs Plan The patient to return in 3 months, labs ordered to be completed prior to appt Orders: Orders Complete Blood Count Auto Diff 3 Months D64.9 - Anemia, unspecified, E78.00 - Pure hypercholesterolemia, unspecified, R53.83 - Other fatigue Vitamin B12 and Folate 3 Months D64.9 - Anemia, unspecified, E78.00 - Pure hypercholesterolemia, unspecified, R53.83 - Other fatigue Comprehensive Prole. Panel Fast 3 Months D64.9 - Anemia, unspecified, E78.00 - Pure hypercholesterolemia, unspecified, R53.83 - Other fatigue Lipid Panel 3 Months D64.9 - Anemia, unspecified, E78.00 - Pure hypercholesterolemia, unspecified, R53.83 - Other fatigue IRON PROFILE 3 Months D64.9 - Anemia, unspecified, E78.00 - Pure hypercholesterolemia, unspecified, R53.83 - Other fatigue UA CC w/rflx Micro + Cult 3 Months D64.9 - Anemia, unspecified, E78.00 - Pure hypercholesterolemia, unspecified, R53.83 - Other fatigue TSH reflex Free T4 3 Months D64.9 - Anemia, unspecified, E78.00 - Pure hypercholesterolemia, unspecified, R53.83 - Other fatigue Glucose Fasting 3 Months D64.9 - Anemia, unspecified, E78.00 - Pure hypercholesterolemia, unspecified, R53.83 - Other fatigue Medications: New docusate sodium (Colace) 100 mg PO BID 60 caps 0RF
== END 2024-06-03 14:37 | disposition home or self-care (01) ==
DX: R10.11 Right upper quadrant pain (principal); F19.11 Other psychoactive substance abuse, in remission; K62.5 Hemorrhage of anus and rectum; M54.41 Lumbago with sciatica, right side; M25.361 Other instability, right knee; K59.04 Chronic idiopathic constipation; D64.9 Anemia, unspecified

== ENCOUNTER → 2024-06-03 13:49 | Outpatient (BNVA) | payer OTHER, SELFPAY | DX: R10.11 Right upper quadrant pain (principal); K62.5 Hemorrhage of anus and rectum; M54.41 Lumbago with sciatica, right side; M25.361 Other instability, right knee; F19.11 Other psychoactive substance abuse, in remission; K59.04 Chronic idiopathic constipation; D64.9 Anemia, unspecified | CPT/HCPCS: 96127; 99212 ==